=== PATIENT | male | born 1965 | race African-American/Black ===

== ENCOUNTER 2018-04-17 03:56 | Emergency (ER) | payer OTHER ==
[2018-04-17] MEDS ORDERED: Dexamethasone 4 MG TAB ONE (04:07)
[2018-04-17] MEDS ORDERED: Dexamethasone 10 MG/ML VIAL ONE (04:08)
[2018-04-17] MEDS ORDERED: diphenhydrAMINE 50 MG/ML VIAL ONE (05:08)
--- NOTE | 2018-04-17 07:40 | RAD ---
NECK 2 VIEWS: 04/17/18. COMPARISON: None. HISTORY: Shortness of breath and throat pain. FINDINGS: Lateral exam demonstrates no prevertebral soft tissue swelling. Epiglottis appears normal. There is straightening of the normal cervical lordosis. There is disk space narrowing and anterior osteophyt e formation at C3-4. IMPRESSION: No acute findings. If symptoms persist, CT of the neck may be beneficial. POS: [facility]
== END 2018-04-17 05:50 | disposition home or self-care (01) ==
LOC: ERS 03:56
DX: R22.0 Localized swelling, mass and lump, head (principal); Z21 Asymptomatic human immunodeficiency virus [HIV] infection status; I10 Essential (primary) hypertension
CPT/HCPCS: 70360; 96372; J1100; J1200; J8540

== ENCOUNTER 2019-03-06 10:28 | Emergency (ER) | payer OTHER ==
[2019-03-06 12:17] LABS: #Basophils 0.1 thou/uL (0.0-0.2); #Eosinphils 0.2 thou/uL (0.0-0.7); #Lymphocytes 2.3 thou/uL (1.20-3.40); #Monocytes 0.4 thou/uL (0.11-0.59); #Neutrophils 2.3 thou/uL (1.40-6.50); %Basophils 1.2 % (0.0-1.0); %Eosinophils 4.6 % (0.0-10.0); %Lymphocytes 43.8 % (21.0-51.0); %Monocytes 6.8 % (0.0-10.0); %Neutrophils 43.7 % (42.0-75.0); Hemoglobin 12.9 g/dL (14.0-18.0); Mean Corpuscular HGB CONC 33.3 g/dL (32.0-36.0); Mean Corpuscular Volume 99.1 fL (78.0-98.0); Mean Platelet Volume 6.4 fL (7.4-10.4); Platelet Count 285 thou/uL (130-400); RBC Distribution Width 12.8 % (11.5-14.5); Red Blood Cell (RBC) Count 3.91 mill/uL (4.70-6.10); White Blood Cell (WBC) Count 5.3 thou/uL (4.8-10.8)
[2019-03-06 12:39] LABS: ALT (SGPT) 34 U/L (8-55); AST (SGOT) 41 U/L (5-34); Albumin 4.3 g/dL (3.5-5.0); Alkaline Phosphatase 139 U/L (40-150); Anion Gap 13 mmol/L (10-20); BUN (Urea Nitrogen) 17 mg/dL (8.4-25.7); Bilirubin, Total 0.2 mg/dL (0.2-1.2); Calc. Creatinine Clearance 0 mL/min (70-130); Calcium 10.2 mg/dL (7.8-10.44); Carbon Dioxide 26 mmol/L (22-29); Chloride 106 mmol/L (98-107); Estimated GFR-MDRD 76; Glucose 117 mg/dL (70-105); Lipase 18 U/L (8-78); Potassium 4.5 mmol/L (3.5-5.1); Protein, Total 8.3 g/dL (6.0-8.3); Sodium 140 mmol/L (136-145)
--- NOTE | 2019-03-06 12:42 | RAD ---
SINGLE VIEW OF THE CHEST: COMPARISON: 06/07/2010. HISTORY: Abdominal pain. FINDINGS: A single view of the chest shows a normal-size cardiomediastinal silhouette. There is atelectasis in the lung bases. There is no evidence of consolidation, mass, or pleural effusion. IMPRESSION: No evidence of acute cardiopulmonary disease. POS: [facility]
[2019-03-06] MEDS ORDERED: Ketorolac Tromethamine 30 MG/ML VIAL ONE (13:24)
--- NOTE | 2019-03-06 14:01 | CT ---
CT ABDOMEN AND PELVIS WITH IV CONTRAST 03/06/2019 CLINICAL INFORMATION: Bilateral upper and lower extremity swelling with pain in lower abdomen as well as back pain. Symptom s of the present for 8 to 9 days. COMPARISON: 08/01/2011 Technique: Multiple contiguous axial CT images are obtained through the abdomen and pelvis with IV contrast. Cor onal reformatted images are provided. FINDINGS: Lower Chest: The slight nodular and linear density at the right lateral costophrenic angle is again s een and likely due to focal area of scarring given stability since prior exam. Vessels: The abdominal aorta is normal in caliber without evidence of an aortic dissection. Abdomen: Portal vein:Patent Gallbladder: Decompressed. Liver: There is a subcentimeter too small to characterize hypodense lesion seen in the medial aspect of the left hepatic lobe adjacent to the portal vein with a much smaller subcentimeter too small to characterize hypodense lesion in the right hepatic lobe. There was a low-density lesion in the sheet metal fabricator ior segment right hepatic lobe on the prior exam which is not appreciated on the current study. Spleen: within normal limits. Pancreas: within normal limits. Adrenals: within normal limits. Kidneys: within normal limits. Bowel: Small amount retained fecal material is seen throughout the colon. Loops of small bowel are no rmal in caliber. Appendix: The appendix is visualized and normal in caliber. Peritoneum: No ascites or free air; no fluid collection. Mesentery and Retroperitoneum: No enlarged mesenteric or retroperitoneal lymph nodes. Abdominal Wall: There is a left inguinal hernia predominantly containing fat, but a portion of the le ft anterolateral wall of the urinary bladder extends into this defect. Small fat-containing right inguinal hernia is present. Pelvis: Reproductive Organs: No pelvic masses. Pelvis within normal limits. Bladder: As stated above, a portion of the anterolateral left urinary bladder extends into a left ing uinal hernia. This was present on the prior study in 2011. Bones: Mild degenerative changes are seen in the spine. IMPRESSION: 1. Stable left inguinal hernia predominantly containing fat as well as a small portion of the left an terolateral aspect of the urinary bladder. 2. Subcentimeter too small to characterize hypodense lesions in the liver. 3. No acute findings are seen in the abdomen or pelvis. 4. Constipation.
--- NOTE | 2019-03-06 15:06 | CT ---
CT LUMBAR SPINE WITHOUT CONTRAST: Date: 03/06/19 COMPARISON: None. HISTORY: Swelling of bilateral arms and lower extremities. Pain in lower abdomen and back. TECHNIQUE: Multiple contiguous axial images were obtained in a CT of the lumbar spine without contrast. Sagittal and coronal reformats were performed. FINDINGS: The vertebral bodies and intervertebral discs demonstrate normal height and alignment without fractur e or subluxation. No significant degenerative changes are seen of the intervertebral discs of the lum bar spine. No bony narrowing of the neural foramina or central canal seen. Prevertebral and paraspina l soft tissues are unremarkable. IMPRESSION: No evidence of acute osseous abnormality of the lumbar spine. POS: [facility]
[2019-03-06] MEDS ORDERED: ISOVUE-370 76%-LOCM 1 ML ONE (16:06)
== END 2019-03-06 15:32 | disposition home or self-care (01) ==
LOC: ERS 10:28
DX: K59.00 Constipation, unspecified (principal); K40.90 Unilateral inguinal hernia, without obstruction or gangrene, not specified as recurrent; M54.5 Low back pain; I10 Essential (primary) hypertension; Z79.899 Other long term (current) drug therapy
CPT/HCPCS: 36415; 71045; 72131; 74177; 80053; 83690; 83880; 84484; 85025; 93005; 96374; J1885

== ENCOUNTER 2020-01-13 02:43 | Emergency (ER) | payer OTHER ==
[2020-01-13] MEDS ORDERED: Ketorolac Tromethamine 30 MG/ML VIAL ONE (03:38)
[2020-01-13 04:38] LABS: Bilirubin Negative (Negative); Blood, Urine Negative (Negative); Clarity Clear (Clear); Glucose, Urine (Dipstick) Normal (Negative); Leukocyte Negative Leu/uL (Negative); Nitrite Negative (Negative); Protein, Urine (Dipstick) Negative (Neg-Trace)
--- NOTE | 2020-01-13 08:07 | ULT ---
PRELIMINARY REPORT/[facility]/EMERGENCY AFTER HOURS PROCEDURE: EXAM: US Scrotum. CLINICAL HISTORY: Lt teste pain/edema x 3 months TECHNIQUE: Real-time ultrasound of the scrotum with color Doppler and image documentation. COMPARISON: None provided. FINDINGS: RIGHT TESTICLE: Normal Doppler flow. Measures 3.2 x 4.5 x 2.1 cm and demonstrates a 1.2 x 1.2 x 1.1 cm hypoechoic ma ss in the mid testis LEFT TESTICLE: No mass. Normal Doppler flow. Measures 3.1 x 3.9 x 2.3 cm EPIDIDYMIDES: A small LEFT epididymal cyst is noted. SCROTUM: Bilateral hydroceles are seen, LEFT greater than RIGHT, with a left-sided varicocele. IMPRESSION: Varicocele on the LEFT. Bilateral hydroceles. 1.2 cm hypoechoic mass in the RIGHT testis for which follow-up imaging is advised. No evidence for torsion. ELECTRONICALLY SIGNED BY: Lance Chavarria MD Jan 13, 2020 4:19:07 AM CDT This report is intended for review by the ordering physician only, in accordance of law. If you recei ve this report in error, please call [facility] at [phone]. FINAL REPORT EMERGENCY AFTER HOURS TESTICULAR/SCROTAL ULTRASOUND: Date: 01/13/2020 FINDINGS/IMPRESSION: I agree with the findings and impression given in the preliminary report per [facility] physici an. 1. There is a right testicular hypoechoic mass. This patient is not at a typical age range for a clay inoma. Follow-up imaging is advised. 2. Left-sided varicocele. 3. Small bilateral hydroceles. POS: [facility]
== END 2020-01-13 05:06 | disposition home or self-care (01) ==
LOC: ERS 02:43
DX: N43.3 Hydrocele, unspecified (principal); I86.1 Scrotal varices; I10 Essential (primary) hypertension; B20 Human immunodeficiency virus [HIV] disease; Z79.899 Other long term (current) drug therapy
CPT/HCPCS: 76870; 81003; 93976; 96372; J1885

== ENCOUNTER 2023-04-15 00:44 | Emergency (ER) | payer OTHER ==
[2023-04-15] MEDS ORDERED: Ketorolac Tromethamine 30 MG/ML VIAL ONE (01:34)
[2023-04-15] MEDS ORDERED: Morphine 4 MG/ML VIAL ONE (01:34)
== END 2023-04-15 02:50 | disposition home or self-care (01) ==
LOC: ERS 00:44
DX: S82.831A Other fracture of upper and lower end of right fibula, initial encounter for closed fracture (principal); I10 Essential (primary) hypertension; W01.0XXA Fall on same level from slipping, tripping and stumbling without subsequent striking against object, initial encounter
CPT/HCPCS: 96372; 99283; J1885; J2270

== ENCOUNTER 2024-06-05 08:20 | Emergency (ER) | payer OTHER ==
[2024-06-05] MEDS ORDERED: Lidocaine 1% w/Epinephrine 1:100K 20 ML VIAL ONE (10:41)
== END 2024-06-05 12:00 | disposition home or self-care (01) ==
LOC: ERS 08:20
DX: L91.8 Other hypertrophic disorders of the skin (principal); B20 Human immunodeficiency virus [HIV] disease; I10 Essential (primary) hypertension; Z55.6 Problems related to health literacy; Z86.73 Personal history of transient ischemic attack (TIA), and cerebral infarction without residual deficits; Z79.899 Other long term (current) drug therapy
CPT/HCPCS: 11200; 99282